=== PATIENT | male | born 1980 | race Two or more races ===

== ENCOUNTER 2020-07-19 14:14 | Emergency (ER) | payer SELFPAY ==
[~2020-07-19] VITALS: Ht 180.3 cm; Wt 82.5 kg
[2020-07-19] MEDS ORDERED: MAALOX/HYOSCYAMINE/LIDOCAINE 45 ML BTL PO ONE (16:00)
[2020-07-19] MEDS ORDERED: PANTOPRAZOLE 40MG TABLET PO ONE (16:00)
[2020-07-19] MEDS ORDERED: ONDANSETRON ODT 4 MG PO ONE (16:00)
[2020-07-19 16:12] LABS: BASOPHILS % (AUTO) 1 % (0-1); EOSINOPHILS % (AUTO) 1 % (1-7); LYMPHOCYTES % (AUTO) 21 % (22-44); MEAN CORPUSCULAR HEMOGLOBIN 33.8 pg (27.5-34.5); MEAN CORPUSCULAR HGB CONC 33.7 g/dL (33.2-36.2); MEAN PLATELET VOLUME 7.5 fL (7.4-10.4); MONOCYTES % (AUTO) 8 % (2-9); NEUTROPHILS % (AUTO) 70 % (42-75); PLATELET COUNT 378 x10^3/uL (130-400); RED BLOOD COUNT 4.39 x10^6/uL (4.38-5.82); RED CELL DISTRIBUTION WIDTH 13.1 % (9.4-14.8)
[2020-07-19 16:14] LABS: MD NO
[2020-07-19] MEDS ORDERED: MAALOX/HYOSCYAMINE/LIDOCAINE 45 ML BTL ONE (16:14)
[2020-07-19] MEDS ORDERED: PANTOPRAZOLE 40MG TABLET ONE (16:14)
[2020-07-19] MEDS ORDERED: ONDANSETRON ODT 4 MG ONE (16:15)
[2020-07-19 16:18] VITALS: BP 126/85
[2020-07-19 16:20] LABS: ALBUMIN 3.8 g/dL (3.4-5.0); CALCIUM 9.6 mg/dL (8.5-10.1); CHLORIDE 101 mmol/L (98-107)
[2020-07-19 16:27] LABS: ALANINE AMINOTRANSFERASE 28 U/L (12-78); ALKALINE PHOSPHATASE 59 U/L (45-117); ANION GAP 7 mmol/L (5-15); BILIRUBIN,TOTAL 0.6 mg/dL (0.2-1.0); CREATININE 1.08 mg/dL (0.7-1.3)
--- NOTE | 2020-07-19 17:05 | NUR ---
FOOD TRAY PROVIDED PRIOR TO DC.
== END 2020-07-19 17:12 | disposition home or self-care (01) ==
LOC: ED 16:28
DX: K29.01 Acute gastritis with bleeding (principal); F17.200 Nicotine dependence, unspecified, uncomplicated
CPT/HCPCS: 36415; 80053; 83690; 85025; 99284; Q0162